=== PATIENT | female | born 1995 | race African-American/Black ===

== ENCOUNTER 2018-01-11 19:12 | Emergency (ER) | payer MEDICAID ==
[~2018-01-11] VITALS: Ht 170.2 cm; Wt 70.3 kg
[~2018-01-11 19:12] MED LIST: CEPHALEXIN500 MG ORAL; IBUPROFEN600 MG ORAL; NITROFURANTOIN100 M2 ORAL; NKM; PRENATAL COMPL1 EAC1 PO; ZOFRAN ODT4 MG ORAL; ZOFRAN4 MG ORAL
[2018-01-11 19:25] VITALS: BP 130/80
[2018-01-11] MEDS ORDERED: Phenazopyridine 200mg tab ORAL ONE (19:30)
[2018-01-11 19:59] LABS: APPEARANCE,URINE CLEAR; BILIRUBIN, URINE NEGATIVE (NEGATIVE); COLOR,URINE PALE YELLOW; GLUCOSE, URINE (UA) NEGATIVE (NEGATIVE); KETONES,URINE NEGATIVE (NEGATIVE); LEUKOCYTE ESTERASE ,URINE NEGATIVE (NEGATIVE); NITRITE,URINE NEGATIVE (NEGATIVE); PH,URINE 6.5 (4.5-8.0); PROTEIN,URINE NEGATIVE (NEGATIVE); UROBILINOGEN,URINE NORMAL MG/DL (0.0-1.0)
--- NOTE | 2018-01-11 20:07 | Emergency Room Report ---
History of Present Illness General Chief Complaint: Back Pain-No Injury Source: Patient Present Illness HPI 22-year-old female presents to the emergency department complaining of dysuria, urinary frequency and urgency in addition to low back pain and dull constant headache that she rates as 5/10 in severity x3 days. She denies fevers, chills , nausea, vomiting constipation or diarrhea. Patient reports history of UTIs in the past with similar presentations. Patient denies history of kidney stone she denies hematuria or vaginal discharge. She denies . Patient denies abdominal tenderness or abdominal pain.Denies CP, Palpitations, LOC, AMS , dizziness, Changes in Vision, Sensation, paresthesias, or a sudden severe headache. Allergies: Coded Allergies: No Known Allergies (Unverified , 09/25/13) Patient History Past Medical History: see triage record Past Surgical History: none Pertinent Family History: none Last Menstrual Period: Now: No Reviewed Nursing Documentation: PMH: Agreed, PSxH: Agreed Nursing Documentation-PMH Past Medical History: No Stated History Review of Systems All Other Systems: negative except mentioned in HPI Physical Exam Vital Signs Date Time Temp Pulse Resp B/P (MAP) Pulse Ox O2 Delivery O2 Flow Rate FiO2 01/11/18 19:20 98.4 61 18 130/80 98 Room Air 98.4 Sp02 EP Interpretation: reviewed, normal General Appearance: no apparent distress, alert, GCS 15, non-toxic Head: normocephalic, atraumatic Eyes: bilateral eye normal inspection ENT: hearing grossly normal, normal voice Neck: full range of motion Respiratory: lungs clear, normal breath sounds, speaking full sentences Cardiovascular #1: regular rate, rhythm Gastrointestinal: normal bowel sounds, non tender, soft Rectal: deferred Genitourinary: normal inspection, no CVA tenderness Musculoskeletal: back normal, gait/station normal, normal range of motion, non- tender Neurologic: alert, oriented x3, responsive, motor strength/tone normal, sensory intact, normal gait, speech normal, grossly normal Psychiatric: judgement/insight normal Skin: normal color, no rash, warm/dry, well hydrated Medical Decision Making PA Attestation Dr. preston is my supervising Physician whom patient management has been discussed with. Diagnostic Impression: Primary Impression: Urinary tract infection Qualified Codes: N30.00 - Acute cystitis without hematuria ER Course 22-year-old female presents to the emergency department complaining of dysuria, urinary frequency and urgency in addition to low back pain and dull constant headache that she rates as 5/10 in severity x3 days. She denies fevers, chills , nausea, vomiting constipation or diarrhea. Patient reports history of UTIs in the past with similar presentations. Patient denies history of kidney stone she denies hematuria or vaginal discharge. She denies . Patient denies abdominal tenderness or abdominal pain.Denies CP, Palpitations, LOC, AMS , dizziness, Changes in Vision, Sensation, paresthesias, or a sudden severe headache. Ddx include but are not limited to : urinary stone, UTI, pyelonephritis, , acute appendicitis, STI just to name a few. Orders: - UA: presence of many bacteria with few squamous cells. -Urine HCG: negative INTERVENTIONS: -Pyridium PO d/w pt that oral antibiotics and Pyridium will be the treatment. Patient states that she frequently will have yeast infections after antibiotics. I discussed with the patient I will prescribe her some Diflucan to be taken after she completes her course of Macrobid. - DISCHARGE: At this time pt. is stable for d/c to home. Will provide printed patient care instructions, and any necessary prescriptions. Care plan and follow up instructions have been discussed with the patient prior to discharge. Labs Test 01/11/18 19:25 Urine Color Pale yellow Urine Appearance Clear Urine pH 6.5 (4.5-8.0) Urine Specific [place] 1.010 (1.005-1.035) Urine Protein Negative (NEGATIVE) Urine Glucose (UA) Negative (NEGATIVE) Urine Ketones Negative (NEGATIVE) Urine Occult Blood 5+ (NEGATIVE) Urine Nitrite Negative (NEGATIVE) Urine Bilirubin Negative (NEGATIVE) Urine Urobilinogen Normal MG/DL (0.0-1.0) Urine Leukocyte Esterase Negative (NEGATIVE) Urine RBC 0-2 /HPF (0 - 2) Urine WBC 0-2 /HPF (0 - 2) Urine Squamous Epithelial Cells Moderate /LPF (NONE/OCC) Urine Bacteria Many /HPF (NONE) Urine HCG, Qualitative Negative Last Vital Signs Date Time Temp Pulse Resp B/P (MAP) Pulse Ox O2 Delivery O2 Flow Rate FiO2 01/11/18 19:25 98.4 61 18 130/80 98 Room Air 98.4 Disposition: HOME, SELF-CARE Condition: Stable Scripts Fluconazole (FLUCONAZOLE) 100 Mg Tablet 100 MG ORAL DAILY for 3 Days, #3 TAB 0 Refills Prov: Vane Freeman 01/11/18 Phenazopyridine Hcl* (PYRIDIUM*) 200 Mg Tablet 200 MG ORAL THREE TIMES A DAY for 3 Days, #9 TAB 0 Refills Prov: Vane Freeman 01/11/18 Nitrofurantoin Monohyd/M-Cryst* (MACROBID 100 MG*) 100 Mg Capsule 100 MG ORAL EVERY 12 HOURS for 5 Days, #10 CAP Prov: Vane Freeman 01/11/18 Patient Instructions: Urinary Tract Infection Additional Instructions: Take medications as directed. Pyridium will cause your urine to change color (Red/[place]), this is a normal side effect of the medication. Follow up with a Primary Care Provider in 3-5 days, even if your symptoms have resolved. --Please review list of primary care clinics, if you do not already have a primary care provider Return sooner to ED if new symptoms occur, or current symptoms become worse. - Please note that this Emergency Department Report was dictated using Once Innovationsprotozoology teacher technology software, occasionally this can lead to erroneous entry secondary to interpretation by the dictation equipment. Vane Freeman Jan 11, 2018 20:07
[2018-01-11] MEDS ORDERED: NITROFURANTOIN100 M2 ORAL (20:16)
[2018-01-11] MEDS ORDERED: FLUCONAZOLE100 MG ORAL (20:16)
[2018-01-11] MEDS ORDERED: PHENAZOPYRIDIN200 MG ORAL (20:16)
[2018-01-11 20:25] VITALS: BP 130/80
== END 2018-01-11 20:25 | disposition home or self-care (01) ==
LOC: EMR 19:30
DX: N39.0 Urinary tract infection, site not specified (principal)
CPT/HCPCS: 81003; 81025; 87086; 87181; 99284

== ENCOUNTER 2018-07-16 15:31 | Emergency (ER) | payer MEDICAID ==
[~2018-07-16] VITALS: Ht 170.2 cm; Wt 77.1 kg
[~2018-07-16 15:31] MED LIST changes: +FLUCONAZOLE100 MG ORAL; +PHENAZOPYRIDIN200 MG ORAL
[2018-07-16 15:40] VITALS: BP 131/64
[2018-07-16] MEDS ORDERED: Phenazopyridine 200mg tab ORAL ONE (15:45)
[2018-07-16 16:00] LABS: APPEARANCE,URINE CLOUDY; BILIRUBIN, URINE NEGATIVE (NEGATIVE); COLOR,URINE PALE YELLOW; GLUCOSE, URINE (UA) NEGATIVE (NEGATIVE); KETONES,URINE 4+ (NEGATIVE); LEUKOCYTE ESTERASE ,URINE 3+ (NEGATIVE); NITRITE,URINE POSITIVE (NEGATIVE); PH,URINE 5 (4.5-8.0); PROTEIN,URINE 2+ (NEGATIVE); UROBILINOGEN,URINE NORMAL MG/DL (0.0-1.0)
[2018-07-16] MEDS ORDERED: cefTRIAXone 1 GM in NS 55 ML IVPB ONE (16:00)
[2018-07-16] MEDS ORDERED: Morphine Sulfate 4mg/ml Inj (IV USE ONLY) IVP ONE ×2 (16:00→17:30)
--- NOTE | 2018-07-16 16:20 | Emergency Room Report ---
History of Present Illness General Chief Complaint: Female Urogenital Problems Source: Patient Present Illness HPI 22 YO Female presents to the ED c/o dysuria, hematuria and bilateral 10/10 in severity flank pain x 3 days. pt. reports fevers and chills x 2 days. she denies vomiting but reports some nausea. Patient denies constipation, diarrhea , swollen tender lymph nodes, joint pain, external vaginal lesions or vaginal discharge. Patient denies . Patient denies history of kidney stones. Denies rash. Allergies: Coded Allergies: No Known Allergies (Unverified , 09/25/13) Patient History Past Medical History: see triage record Past Surgical History: none Pertinent Family History: none Now: No Reviewed Nursing Documentation: PMH: Agreed; PSxH: Agreed Nursing Documentation-PMH Past Medical History: No Stated History Review of Systems All Other Systems: negative except mentioned in HPI Physical Exam Vital Signs Date Time Temp Pulse Resp B/P (MAP) Pulse Ox O2 Delivery O2 Flow Rate FiO2 07/16/18 15:40 102.9 109 18 131/64 96 Room Air 102.9 Sp02 EP Interpretation: reviewed, normal General Appearance: alert, GCS 15, non-toxic, moderate distress Head: normocephalic, atraumatic Eyes: bilateral eye normal inspection, bilateral eye PERRL ENT: hearing grossly normal, normal voice Neck: full range of motion Respiratory: lungs clear, normal breath sounds, speaking full sentences Cardiovascular #1: regular rate, rhythm Gastrointestinal: normal bowel sounds, non tender, soft Rectal: deferred Genitourinary: normal inspection, adnexa normal, CVA tenderness (R), CVA tenderness (L) Musculoskeletal: back normal, gait/station normal, normal range of motion, non- tender Neurologic: alert, oriented x3, responsive, motor strength/tone normal, sensory intact, speech normal, grossly normal Psychiatric: judgement/insight normal Skin: normal color, no rash, warm/dry, well hydrated Medical Decision Making PA Attestation Dr. preston is my supervising Physician whom patient management has been discussed with. Diagnostic Impression: Primary Impression: Pyelonephritis ER Course 22 YO Female presents to the ED c/o dysuria, hematuria and bilateral 10/10 in severity flank pain x 3 days. pt. reports fevers and chills x 2 days. she denies vomiting but reports some nausea. Patient denies constipation, diarrhea , swollen tender lymph nodes, joint pain, external vaginal lesions or vaginal discharge. Patient denies . Patient denies history of kidney stones. Denies rash. Ddx considered but are not limited to UTi , Pyelo, STI, Stone, Cystitis Vital signs: are WNL, pt. is afebrile H&PE are most consistent with pyelonephritis, clinically with fever, CVA tenderness and urinary symptoms, will do lab work and order IV fluids and ABx. ORDERS: - UA labs are attached - Positive for infection, nitrite positive as well. - Urine Hcg: Negative -CBC: leukocytosis at 17.7 -CMP: unremarkable good renal function. normal electrolytes -Lactic Acid: WNL -Blood Cultures x 2: Pending. ED INTERVENTIONS: -1 Liter NS -4mg Morphine IV -4mg Zofran IV -1g Rocephin IV Pt. VS normalized Pt pain under control I feel this pt. is stable and can be safely discharged home to continue outpatient oral antibiotics. D/w pt. ED return precautions and to return immediately to the nearest ED if she experiences worsening or new symptoms. DISCHARGE: At this time pt. is stable for d/c to home. Will provide printed patient care instructions, and any necessary prescriptions. Care plan and follow up instructions have been discussed with the patient prior to discharge. Labs Test 07/16/18 15:46 07/16/18 16:10 Urine Color Pale yellow Urine Appearance Cloudy Urine pH 5 (4.5-8.0) Urine Specific [place] 1.015 (1.005-1.035) Urine Protein 2+ (NEGATIVE) Urine Glucose (UA) Negative (NEGATIVE) Urine Ketones 4+ (NEGATIVE) Urine Occult Blood 5+ (NEGATIVE) Urine Nitrite Positive (NEGATIVE) Urine Bilirubin Negative (NEGATIVE) Urine Urobilinogen Normal MG/DL (0.0-1.0) Urine Leukocyte Esterase 3+ (NEGATIVE) Urine RBC 5-10 /HPF (0 - 2) Urine WBC Tntc /HPF (0 - 2) Urine Squamous Epithelial Cells Many /LPF (NONE/OCC) Urine Bacteria Many /HPF (NONE) Urine HCG, Qualitative Negative (NEGATIVE) White Blood Count 17.7 K/UL (4.8-10.8) Red Blood Count 4.89 M/UL (4.20-5.40) Hemoglobin 13.7 G/DL (12.0-16.0) Hematocrit 42.1 % (37.0-47.0) Mean Corpuscular Volume 86 FL (80-99) Mean Corpuscular Hemoglobin 28.1 PG (27.0-31.0) Mean Corpuscular Hemoglobin Concent 32.6 G/DL (32.0-36.0) Red Cell Distribution Width 11.4 % (11.6-14.8) Platelet Count 247 K/UL (150-450) Mean Platelet Volume 7.6 FL (6.5-10.1) Neutrophils (%) (Auto) 81.0 % (45.0-75.0) Lymphocytes (%) (Auto) 7.8 % (20.0-45.0) Monocytes (%) (Auto) 10.5 % (1.0-10.0) Eosinophils (%) (Auto) 0.2 % (0.0-3.0) Basophils (%) (Auto) 0.6 % (0.0-2.0) Sodium Level 140 MMOL/L (136-145) Potassium Level 3.8 MMOL/L (3.5-5.1) Chloride Level 102 MMOL/L (98-107) Carbon Dioxide Level 24 MMOL/L (21-32) Anion Gap 14 mmol/L (5-15) Blood Urea Nitrogen 7 mg/dL (7-18) Creatinine 0.9 MG/DL (0.55-1.30) Estimat Glomerular Filtration Rate > 60 mL/min (>60) Glucose Level 88 MG/DL (74-106) Lactic Acid Level 1.30 mmol/L (0.4-2.0) Calcium Level 9.6 MG/DL (8.5-10.1) Total Bilirubin 1.1 MG/DL (0.2-1.0) Direct Bilirubin 0.3 MG/DL (0.0-0.3) Aspartate Amino Transf (AST/SGOT) 12 U/L (15-37) Alanine Aminotransferase (ALT/SGPT) 19 U/L (12-78) Alkaline Phosphatase 93 U/L (46-116) Total Protein 8.3 G/DL (6.4-8.2) Albumin 3.7 G/DL (3.4-5.0) Globulin 4.6 g/dL Albumin/Globulin Ratio 0.8 (1.0-2.7) Last Vital Signs Date Time Temp Pulse Resp B/P (MAP) Pulse Ox O2 Delivery O2 Flow Rate FiO2 07/16/18 15:40 102.9 109 18 131/64 96 Room Air 102.9 Disposition: HOME, SELF-CARE Condition: Stable Scripts Phenazopyridine Hcl* (PYRIDIUM*) 200 Mg Tablet 200 MG ORAL THREE TIMES A DAY for 3 Days, #9 TAB 0 Refills Prov: Vane Freeman 07/16/18 Hydrocodone Bit/Acetaminophen 5-325* (NORCO 5-325*) 1 Each Tablet 1 TAB ORAL Q6H PRN for For Pain, #10 TAB 0 Refills Prov: Vane Freeman 07/16/18 Ciprofloxacin* (CIPRO*) 500 Mg Tablet 500 MG PO BID for 7 Days, #14 TAB Prov: Vane Freeman 07/16/18 Referrals: [facility]ERR (PCP) Departure Forms: Return to Work Return to Work Date: Jul 20, 2018 Work Restrictions: None Return to Full Activity: Jul 20, 2018 Patient Instructions: Pyelonephritis, Adult, [id number] Additional Instructions: Take medications as directed. Follow up with a Primary Care Provider in 3-5 days, even if your symptoms have resolved. --Please review list of primary care clinics, if you do not already have a primary care provider Return sooner to ED if new symptoms occur, or current symptoms become worse. Do not drink alcohol, drive, or operate heavy machinery while taking [place] as this may cause drowsiness. - Please note that this Emergency Department Report was dictated using Innovate2certified wellness program coordinator technology software, occasionally this can lead to erroneous entry secondary to interpretation by the dictation equipment. Vane Freeman Jul 16, 2018 16:20
[2018-07-16 16:25] LABS: BASOPHILS % (AUTO) 0.6 % (0.0-2.0); EOSINOPHILS % (AUTO) 0.2 % (0.0-3.0); HEMATOCRIT 42.1 % (37.0-47.0); HEMOGLOBIN 13.7 G/DL (12.0-16.0); LYMPHOCYTES % (AUTO) 7.8 % (20.0-45.0); MEAN CORPUSCULAR VOLUME 86 FL (80-99); MONOCYTES % (AUTO) 10.5 % (1.0-10.0); PLATELET COUNT 247 K/UL (150-450); RED BLOOD COUNT 4.89 M/UL (4.20-5.40); RED CELL DISTRIBUTION WIDTH 11.4 % (11.6-14.8); WHITE BLOOD COUNT 17.7 K/UL (4.8-10.8)
[2018-07-16] MEDS ORDERED: Ketorolac 30mg Inj IV ONE (16:30)
[2018-07-16 16:37] LABS: ANION GAP 14 mmol/L (5-15); BLOOD UREA NITROGEN 7 mg/dL (7-18); CALCIUM 9.6 MG/DL (8.5-10.1); CARBON DIOXIDE 24 MMOL/L (21-32); CHLORIDE 102 MMOL/L (98-107); CREATININE 0.9 MG/DL (0.55-1.30); POTASSIUM 3.8 MMOL/L (3.5-5.1); SODIUM 140 MMOL/L (136-145)
[2018-07-16 16:52] LABS: ALANINE AMINOTRANSFERASE 19 U/L (12-78); ALBUMIN 3.7 G/DL (3.4-5.0); ALBUMIN/GLOBULIN RATIO 0.8 (1.0-2.7); ALKALINE PHOSPHATASE 93 U/L (46-116); ASPARTATE AMINO TRANSFERASE 12 U/L (15-37); BILIRUBIN,TOTAL 1.1 MG/DL (0.2-1.0)
[2018-07-16 16:55] LABS: BILIRUBIN,DIRECT 0.3 MG/DL (0.0-0.3)
[2018-07-16] MEDS ORDERED: CIPRO500 MG PO (17:17)
[2018-07-16] MEDS ORDERED: NORCO 5-325 TA1 EACH ORAL (17:17)
[2018-07-16] MEDS ORDERED: PHENAZOPYRIDIN200 MG ORAL (17:17)
[2018-07-16 17:51] VITALS: BP 115/60
== END 2018-07-16 17:52 | disposition home or self-care (01) ==
LOC: EMR 15:54
DX: N12 Tubulo-interstitial nephritis, not specified as acute or chronic (principal)
CPT/HCPCS: 36415; 80053; 81003; 81025; 82248; 83605; 85025; 87040; 87086; 87181; 96365; 96375; 96376; 99285; J0696; J2270; J2405

== ENCOUNTER 2018-12-05 15:26 | Inpatient (IN) | payer MEDICAID ==
[~2018-12-05] VITALS: Ht 170.2 cm; Wt 80.3 kg
[~2018-12-05 15:26] MED LIST changes: +CIPRO500 MG PO; +NORCO 5-325 TA1 EACH ORAL
[2018-12-05] MEDS ORDERED: NKM (15:32)
[2018-12-05 15:35] VITALS: BP 127/58
--- NOTE | 2018-12-05 15:57 | Emergency Room Report ---
History of Present Illness General Chief Complaint: Abdominal Pain Source: Patient (Corey Pate) Present Illness HPI 23-year-old female patient presents the ER complaining of abdominal cramping for the past 2 days. She reports that she is 6 weeks , has seen her primary care provider however has not seen MANAGER PRIVATE yet. Denies vaginal bleeding. Denies syncope. Denies dysuria, hematuria, vaginal discharge. Reports no syncope or vomiting. Denies chest pain, shortness of breath. Reports right-sided flank pain. Reports history of kidney infection, denies history of kidney stones. Denies diarrhea. Denies calf pain. Reports pain with sexual activity 2 days ago. Denies vaginal discharge. Reports last menstrual period 6 weeks ago, denies vaginal bleeding since that time. (Corey Pate) Allergies: Coded Allergies: No Known Allergies (Unverified , 12/05/18) Patient History Past Medical History: see triage record Last Menstrual Period: 10/18/18 Now: Yes - 6 WEEKS Reviewed Nursing Documentation: PMH: Agreed; PSxH: Agreed (Corey Pate) Nursing Documentation-PMH Past Medical History: No Stated History (Corey Pate) Review of Systems All Other Systems: negative except mentioned in HPI (Corey Pate) Physical Exam Vital Signs Date Time Temp Pulse Resp B/P (MAP) Pulse Ox O2 Delivery O2 Flow Rate FiO2 12/05/18 15:28 98.2 73 16 127/58 97 Room Air Sp02 EP Interpretation: reviewed, normal General Appearance: well appearing, no apparent distress, alert, GCS 15, non- toxic Head: normocephalic, atraumatic Eyes: bilateral eye normal inspection, bilateral eye PERRL ENT: hearing grossly normal, normal pharynx, no angioedema, normal voice, uvula midline, moist mucus membranes Neck: full range of motion Respiratory: lungs clear, normal breath sounds, no rhonchi, no respiratory distress, no accessory muscle use, no wheezing, speaking full sentences Cardiovascular #1: regular rate, rhythm, no edema Gastrointestinal: non tender, soft, no mass, non-distended, no guarding, no rebound Genitourinary: no CVA tenderness, deferred Musculoskeletal: back normal, digits/nails normal, gait/station normal, normal range of motion, non-tender Neurologic: alert, oriented x3, responsive, motor strength/tone normal, sensory intact Psychiatric: mood/affect normal Skin: no rash (Corey Pate) Medical Decision Making PA Attestation Dr. Gomez is my supervising Physician whom patient management has been discussed with. (Corey Pate) Diagnostic Impression: Primary Impression: Ectopic ER Course Pt presents to ED c/o vaginal bleeding/spotting. DDX considered but are not limited to threatened , incomplete , complete , ectopic, UTI, septic , fibroids, dysfunctional uterine bleeding, ruptured cyst, STI, ovarian torsion, anemia. Negative Rovsing, no fever, low suspicion for appendicitis, does not require CT at this time. VITAL SIGNS are WNL, patient is afebrile Pelvic exam: cervical os opened or closed/ deferred. Ordered CBC, CMP, Type and Screen, UA, UCG, bHCG, IV NS and pelvic US. Tylenol for pain control. ER COURSE: CBC shows mild elevation of WBC without left shift, likely due to pain symptoms CMP unremarkable UA results no signs of infection per the preliminary reading. Urine positive BetaHCG 349, less than normal bHCG for 6 week . Rh antibody negative Blood type O positive Results discussed with patient. Pelvic and Abdominal US shows no IUP, no torsion, pelvic free fluid, no hydronephrosis, no kidney stone Results discussed with patient. Elevated beta hCG without IUP, concern for ectopic, need to rule out ectopic . Patient currently hemodynamically stable, vitals stable. Will admit patient for further monitoring and treatment as needed to rule out ectopic. Discuss patient care with Dr. Gomez, agrees with assessment and treatment plan. - Please note that this Emergency Department Report was dictated using Chorustire installer technology software, occasionally this can lead to erroneous entry secondary to interpretation by the dictation equipment. Labs Test 12/05/18 15:48 White Blood Count 12.4 K/UL (4.8-10.8) Red Blood Count 4.72 M/UL (4.20-5.40) Hemoglobin 14.0 G/DL (12.0-16.0) Hematocrit 40.9 % (37.0-47.0) Mean Corpuscular Volume 87 FL (80-99) Mean Corpuscular Hemoglobin 29.6 PG (27.0-31.0) Mean Corpuscular Hemoglobin Concent 34.2 G/DL (32.0-36.0) Red Cell Distribution Width 11.4 % (11.6-14.8) Platelet Count 262 K/UL (150-450) Mean Platelet Volume 7.5 FL (6.5-10.1) Neutrophils (%) (Auto) 70.3 % (45.0-75.0) Lymphocytes (%) (Auto) 20.0 % (20.0-45.0) Monocytes (%) (Auto) 7.8 % (1.0-10.0) Eosinophils (%) (Auto) 0.8 % (0.0-3.0) Basophils (%) (Auto) 1.2 % (0.0-2.0) Urine Color Pale yellow Urine Appearance Clear Urine pH 7 (4.5-8.0) Urine Specific [place] 1.015 (1.005-1.035) Urine Protein 1+ (NEGATIVE) Urine Glucose (UA) Negative (NEGATIVE) Urine Ketones 1+ (NEGATIVE) Urine Blood Negative (NEGATIVE) Urine Nitrite Negative (NEGATIVE) Urine Bilirubin Negative (NEGATIVE) Urine Urobilinogen Normal MG/DL (0.0-1.0) Urine Leukocyte Esterase 1+ (NEGATIVE) Urine RBC 0-2 /HPF (0 - 2) Urine WBC 2-4 /HPF (0 - 2) Urine Squamous Epithelial Cells Moderate /LPF (NONE/OCC) Urine Bacteria Few /HPF (NONE) Urine HCG, Qualitative Positive (NEGATIVE) Sodium Level 138 MMOL/L (136-145) Potassium Level 4.2 MMOL/L (3.5-5.1) Chloride Level 104 MMOL/L (98-107) Carbon Dioxide Level 26 MMOL/L (21-32) Anion Gap 8 mmol/L (5-15) Blood Urea Nitrogen 8 mg/dL (7-18) Creatinine 0.8 MG/DL (0.55-1.30) Estimat Glomerular Filtration Rate > 60 mL/min (>60) Glucose Level 90 MG/DL (74-106) Calcium Level 9.3 MG/DL (8.5-10.1) Total Bilirubin 0.9 MG/DL (0.2-1.0) Aspartate Amino Transf (AST/SGOT) 13 U/L (15-37) Alanine Aminotransferase (ALT/SGPT) 19 U/L (12-78) Alkaline Phosphatase 83 U/L (46-116) Total Protein 7.7 G/DL (6.4-8.2) Albumin 4.0 G/DL (3.4-5.0) Globulin 3.7 g/dL Albumin/Globulin Ratio 1.1 (1.0-2.7) Lipase 208 U/L (73-393) Human Chorionic Gonadotropin, Quant 349 mIU/mL (1-6) (Corey Pate P.Juvenal.) ER Course Patient was seen by PA. Patient appears to be comfortable however pelvic ultrasound showed no evidence of intrauterine with low quantitative beta-hCG and moderate to large amount of free fluid. Dr. Rosas was contacted for OBgyn consult. Dr. Thanh Temple was contacted for inpatient observation. Labs Test 12/05/18 15:48 White Blood Count 12.4 K/UL (4.8-10.8) Red Blood Count 4.72 M/UL (4.20-5.40) Hemoglobin 14.0 G/DL (12.0-16.0) Hematocrit 40.9 % (37.0-47.0) Mean Corpuscular Volume 87 FL (80-99) Mean Corpuscular Hemoglobin 29.6 PG (27.0-31.0) Mean Corpuscular Hemoglobin Concent 34.2 G/DL (32.0-36.0) Red Cell Distribution Width 11.4 % (11.6-14.8) Platelet Count 262 K/UL (150-450) Mean Platelet Volume 7.5 FL (6.5-10.1) Neutrophils (%) (Auto) 70.3 % (45.0-75.0) Lymphocytes (%) (Auto) 20.0 % (20.0-45.0) Monocytes (%) (Auto) 7.8 % (1.0-10.0) Eosinophils (%) (Auto) 0.8 % (0.0-3.0) Basophils (%) (Auto) 1.2 % (0.0-2.0) Urine Color Pale yellow Urine Appearance Clear Urine pH 7 (4.5-8.0) Urine Specific [place] 1.015 (1.005-1.035) Urine Protein 1+ (NEGATIVE) Urine Glucose (UA) Negative (NEGATIVE) Urine Ketones 1+ (NEGATIVE) Urine Blood Negative (NEGATIVE) Urine Nitrite Negative (NEGATIVE) Urine Bilirubin Negative (NEGATIVE) Urine Urobilinogen Normal MG/DL (0.0-1.0) Urine Leukocyte Esterase 1+ (NEGATIVE) Urine RBC 0-2 /HPF (0 - 2) Urine WBC 2-4 /HPF (0 - 2) Urine Squamous Epithelial Cells Moderate /LPF (NONE/OCC) Urine Bacteria Few /HPF (NONE) Urine HCG, Qualitative Positive (NEGATIVE) Sodium Level 138 MMOL/L (136-145) Potassium Level 4.2 MMOL/L (3.5-5.1) Chloride Level 104 MMOL/L (98-107) Carbon Dioxide Level 26 MMOL/L (21-32) Anion Gap 8 mmol/L (5-15) Blood Urea Nitrogen 8 mg/dL (7-18) Creatinine 0.8 MG/DL (0.55-1.30) Estimat Glomerular Filtration Rate > 60 mL/min (>60) Glucose Level 90 MG/DL (74-106) Calcium Level 9.3 MG/DL (8.5-10.1) Total Bilirubin 0.9 MG/DL (0.2-1.0) Aspartate Amino Transf (AST/SGOT) 13 U/L (15-37) Alanine Aminotransferase (ALT/SGPT) 19 U/L (12-78) Alkaline Phosphatase 83 U/L (46-116) Total Protein 7.7 G/DL (6.4-8.2) Albumin 4.0 G/DL (3.4-5.0) Globulin 3.7 g/dL Albumin/Globulin Ratio 1.1 (1.0-2.7) Lipase 208 U/L (73-393) Human Chorionic Gonadotropin, Quant 349 mIU/mL (1-6) (Titi Gomez MD) CT/MRI/US Diagnostic Results CT/MRI/US Diagnostic Results : Imaging Test Ordered: Pelvic and Abdominal US Impression Per US processing technician: Pelvic free fluid, no IUP, no torsion No hydronephrosis, no kidney stone (Corey Pate P.A.) Last Vital Signs Date Time Temp Pulse Resp B/P (MAP) Pulse Ox O2 Delivery O2 Flow Rate FiO2 12/05/18 15:35 73 16 Room Air 12/05/18 15:35 98.2 127/58 97 (Corey Pate) Status: improved (Titi Gomez MD) Disposition: ADMITTED INPATIENT Condition: Serious Corey Pate Dec 05, 2018 15:57 Titi Gomez MD Dec 05, 2018 21:24
[2018-12-05 16:19] LABS: APPEARANCE,URINE CLEAR; BASOPHILS % (AUTO) 1.2 % (0.0-2.0); BILIRUBIN, URINE NEGATIVE (NEGATIVE); COLOR,URINE PALE YELLOW; EOSINOPHILS % (AUTO) 0.8 % (0.0-3.0); GLUCOSE, URINE (UA) NEGATIVE (NEGATIVE); HEMATOCRIT 40.9 % (37.0-47.0); KETONES,URINE 1+ (NEGATIVE); LEUKOCYTE ESTERASE ,URINE 1+ (NEGATIVE); MEAN CORPUSCULAR VOLUME 87 FL (80-99); MONOCYTES % (AUTO) 7.8 % (1.0-10.0); NEUTROPHILS % (AUTO) 70.3 % (45.0-75.0); NITRITE,URINE NEGATIVE (NEGATIVE); PH,URINE 7 (4.5-8.0); PLATELET COUNT 262 K/UL (150-450); PROTEIN,URINE 1+ (NEGATIVE); RED BLOOD COUNT 4.72 M/UL (4.20-5.40); RED CELL DISTRIBUTION WIDTH 11.4 % (11.6-14.8); UROBILINOGEN,URINE NORMAL MG/DL (0.0-1.0); WHITE BLOOD COUNT 12.4 K/UL (4.8-10.8)
[2018-12-05 16:33] LABS: ANION GAP 8 mmol/L (5-15); BLOOD UREA NITROGEN 8 mg/dL (7-18); CALCIUM 9.3 MG/DL (8.5-10.1); CARBON DIOXIDE 26 MMOL/L (21-32); CHLORIDE 104 MMOL/L (98-107); CREATININE 0.8 MG/DL (0.55-1.30); POTASSIUM 4.2 MMOL/L (3.5-5.1); SODIUM 138 MMOL/L (136-145)
[2018-12-05 16:37] LABS: ALANINE AMINOTRANSFERASE 19 U/L (12-78); ALBUMIN/GLOBULIN RATIO 1.1 (1.0-2.7); ALKALINE PHOSPHATASE 83 U/L (46-116); ASPARTATE AMINO TRANSFERASE 13 U/L (15-37); BILIRUBIN,TOTAL 0.9 MG/DL (0.2-1.0)
--- NOTE | 2018-12-05 16:50 | NUR ---
ED Nurse Note: pt went down for US, will give medications when pt comes back.
[2018-12-05 18:29] VITALS: BP 134/67
--- NOTE | 2018-12-05 19:15 | NUR ---
HAND-OFF: Report given to NIOCLE Reeves. No s/s of distress.
[2018-12-06] VITALS (8 sets, daily range): BP systolic 92–140; BP diastolic 46–63
--- NOTE | 2018-12-06 00:07 | NUR ---
ED Nurse Note: pt was admitted in the hospital, pt sent to ms 321, report given to anne win
--- NOTE | 2018-12-06 00:30 | History and Physical Report ---
DATE OF ADMISSION: 12/05/2018 HISTORY OF PRESENT ILLNESS: This is a 23-year-old female, who came to the emergency room for having a recurrent nausea, vomiting, and was found has and has also viral syndrome and palpitation, urinary tract infection, pyelonephritis, and ectopic . The patient currently is unable to eat for the last 2 days. MEDICATIONS: She is taking ibuprofen, nitrofurantoin, Zofran, Pyridium, and ciprofloxacin. ALLERGIES: NKA. FAMILY HISTORY: Not contributory. PHYSICAL EXAMINATION: GENERAL: This is a young female, who currently still looks dehydrated and complaining of generalized weakness. VITAL SIGNS: Blood pressure is 134/67, pulse 75, respirations 16, and temperature 98.2. HEENT: NAD. CHEST: Bilaterally clear. CARDIOVASCULAR: Regular rhythm. No gallop. No murmur. ABDOMEN: Soft. Mild tenderness. EXTREMITIES: CCE. NEUROLOGICAL: No focal deficit. LABORATORY DATA: White counts are 12.4, hemoglobin 14, hematocrit 41, and platelets are 262,000. Chemistry panel; sodium 138, potassium 4.2, BUN 8, creatinine 0.8, glucose 314, . Her SGT is 349. Her urine test is showing 1+ leukocyte esterase and positive and 1+ protein. ASSESSMENT: 1. Urinary tract infection. 2. Pyelonephritis. 3. . PLAN: 1. We will admit on medical floor. 2. Start IV fluid and IV antibiotics. 3. Tylenol p.r.n. 4. Continue supportive treatment. 5. We will also add Rocephin 1 gram q.24 hours. 6. Consider LABOR GANG SUPERVISOR consult and ID consult. Thanh Temple M.D. DR: IGNACIO JOB#: [id number] CC:
[2018-12-06] MEDS: NS w/KCl 20mEq 1,000 ML IV SCH ×3 (02:30→17:45)
--- NOTE | 2018-12-06 03:07 | NUR ---
NURSE NOTES: Patient admitted to room 321. VSS. No SOB noted. 3/10 Abdominal pain noted. No N&V at this time. Belongings list documented and signed. Skin is intact. Able to ambulate to the restroom. MD with orders noted and carried out. Needs attended. Due meds given. Call light within reach. In stable condition.
[2018-12-06] MEDS: cefTRIAXone 1 GM in D5W 55 ML IVPB SCH (05:49)
--- NOTE | 2018-12-06 07:30 | NUR ---
NURSE NOTES: Patient lying in bed awake. Complain of mild pain and will continue to monitor. Skin intact and dry. IV dressing intact and dry. No bleeding or swelling on IV site. IV fluid on going as ordered. Bed lowest position. Call light within reach. Will continue to monitor.
--- NOTE | 2018-12-06 09:27 | NUR ---
CASE MANAGEMENT: REVIEW BIBA FROM HOME CC: ABD PAIN SI: R/O ECTOPIC T 98.2 HR 73 RR 16 BP 127/58 SAT 97% ROOM AIR UA: HCG + IS: NS IVF X1 INTERQUAL CRITERIA MET: PATIENT ADMITTED TO MED/SURG UNIT 12/05/2018 DCP: PATIENT IS FROM HOME CASE MANAGEMENT: REVIEW SI: R/O ECTOPIC T 98.0 HR 68 RR 18 BP 140/59 SAT 97% ROOM AIR IS: CEFTRIAXONE IV Q24HR NS IVF @100ML MED/SURG STATUS DCP: PATIENT IS FROM HOME
--- NOTE | 2018-12-06 09:43 | Diagnostic Imaging Report ---
Indication: Positive test. Pelvic pain Technique: Grayscale and duplex Doppler imaging of the pelvis performed utilizing a transabdominal scan and endovaginal scan. Comparison: None Findings: No IUP identified. There is thickening of the endometrium. There is a free fluid present within the cul-de-sac. Both ovaries are demonstrated and show dopplerable blood flow. Uterus measures approximately 8 x 5 x 6 cm. Endometrium is a about 17 to 18 mm in thickness. Right ovary 4.3 x 3 x 3.9 cm. Left ovary 3.6 x 2.1 x 1.8 cm. IMPRESSION: No IUP identified. Differential considerations include early intrauterine versus early ectopic versus spontaneous . Suggest follow-up and obtaining serial quantitative beta-hCG. Current beta-hCG is noted at the only 349.
[2018-12-06 10:12] LABS: BASOPHILS % (AUTO) 0.6 % (0.0-2.0); EOSINOPHILS % (AUTO) 1.1 % (0.0-3.0); HEMATOCRIT 36.7 % (37.0-47.0); HEMOGLOBIN 12.3 G/DL (12.0-16.0); LYMPHOCYTES % (AUTO) 26.8 % (20.0-45.0); MEAN CORPUSCULAR VOLUME 86 FL (80-99); NEUTROPHILS % (AUTO) 63.5 % (45.0-75.0); PLATELET COUNT 217 K/UL (150-450); RED BLOOD COUNT 4.25 M/UL (4.20-5.40); RED CELL DISTRIBUTION WIDTH 11.6 % (11.6-14.8); WHITE BLOOD COUNT 9.8 K/UL (4.8-10.8)
--- NOTE | 2018-12-06 11:10 | NUR ---
NURSE NOTES: Called and left massage to regarding morning Lab result. Waiting for call back.
--- NOTE | 2018-12-06 11:40 | Diagnostic Imaging Report ---
Indication:Abdominal pain Technique: Grayscale and duplex Doppler imaging of the abdomen performed. Comparison: None Findings: The liver is unremarkable. The gallbladder is unremarkable. The demonstrated part of the pancreas, aorta and IVC show no abnormalities. There is a 1.2 cm right renal cyst. There is a questionable nonobstructive stone in the left kidney. CBD is 2 mm. The spleen is normal in size. There is no biliary ductal dilatation identified. Doppler evaluation of the main portal vein shows patency. There is no ascites. No hydronephrosis seen. Impression: No acute findings. Right renal cyst Questionable nonobstructive stone left kidney.
--- NOTE | 2018-12-06 12:45 | NUR ---
NURSE NOTES: Seen and evaluated by with new order - 1. Patient cleared to discharge Gynecology standpoint and patient will follow up with her primary OB doctor. Order read back and carried out.
--- NOTE | 2018-12-06 14:15 | NUR ---
NURSE NOTES: Called and left massage at office regarding discharge and waiting for call back.
--- NOTE | 2018-12-06 15:28 | NUR ---
NURSE NOTES: Spoke to office. will come and see the patient today. Patient and family member notified.
--- NOTE | 2018-12-06 16:22 | NUR ---
INSURANCE ALL CLINICALS HAVE BEEN FAXED TO: IPA: [facility] NCM: CHRISTI T: [phone] EXT: [id number] F: [phone]
--- NOTE | 2018-12-06 16:40 | NUR ---
NURSE NOTES: Seen and evaluated by with new order - 1. Discharge patient today, 2. Continue home medications upon discharge. Order noted and carried out.
--- NOTE | 2018-12-06 17:30 | NUR ---
NURSE NOTES: Patient still has pressure on her lower back and felt not safe to go home today. Patient requested to discharge tomorrow. Spoke to regarding discharge with new order - 1. Ok to discharge tomorrow. Order noted and carried out.
--- NOTE | 2018-12-06 19:20 | NUR ---
HAND-OFF: Report given to Ayo RIVERA. Patient in stable condition.
--- NOTE | 2018-12-06 19:21 | NUR ---
NURSE NOTES: Report taken from NICOLE Gong. Patient is alert and oriented in bed. No signs of distress, on room air. patient is having some minor flank pain, which is why she would like to stay until tomorrow, but MD has placed discharge orders. Patient boyfriend at bedside. Bed in lowest position, call light within reach.
--- NOTE | 2018-12-06 20:15 | Consultation ---
DATE OF CONSULTATION: 12/06/2018 CONSULTING PHYSICIAN: Nitin Rosas M.D. HISTORY OF PRESENT ILLNESS: This is a 23-year-old female, who is 2, para 1, with questionable last menstrual period approximately 5-6 weeks ago, who presented complaining of lower abdominal cramps. The patient denied any vaginal bleeding. The patient denied any shortness of breath, chest pain, dizziness, or lightheadedness. The patient had a workup done in the emergency room and an ultrasound which revealed normal-sized uterus with no intrauterine , both ovaries within normal limits with no adnexal masses noted with some free fluid. The patient's quantitative beta-hCG was 340 and initial hemoglobin and hematocrit was within normal limits. PAST MEDICAL HISTORY: Noncontributory. PAST SURGICAL HISTORY: Noncontributory. ALLERGIES: The patient has no known drug allergies. OBSTETRICAL HISTORY: She had a full-term normal spontaneous vaginal delivery. GYNECOLOGICAL HISTORY: Contributory for history of Chlamydia infection during her first . SOCIAL HISTORY: Noncontributory. FAMILY HISTORY: Noncontributory. PHYSICAL EXAMINATION: VITAL SIGNS: On presentation, vital signs noted to be stable. CARDIOVASCULAR: Regular rate and rhythm. LUNGS: Clear to auscultation. ABDOMEN: Soft. PELVIC: The patient declined pelvic examination. EXTREMITIES: No cyanosis, edema, or clubbing. LABORATORY DATA: Repeat hemoglobin and hematocrit was within normal limits. The patient's repeat quantitative beta-HCG is 423. ASSESSMENT AND PLAN: At this time, with history of , questionable early intrauterine versus missed versus ectopic. At this time, the patient is stable. The patient was spoken to at length along with her family member about different scenarios, which can include early intrauterine versus missed versus possibility of an ectopic , however, the patient is stable enough to be discharged. The patient is reliable. 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 Strict precaution was given to the patient about ectopic as well as spontaneous . This patient fully understands. The patient was also made aware of the fact that if she has any issues, she should follow up at a tertiary medical center for further evaluation. I thank you for this consultation. Nitin Rosas M.D. DR: GURJIT JOB#: [id number] CC:
--- NOTE | 2018-12-06 21:00 | Progress Note ---
DATE: 12/06/2018 SUBJECTIVE: This is a young 23-year-old female came to the emergency room for abdominal pain, nausea, vomiting, was found to have urinary tract infection, ectopic . The patient was given Zofran, IV antibiotics. Clinically the patient is feeling better. She has no distress. During hospital course, the patient was given IV antibiotics. HAND TACKER consult was obtained. The patient was symptomatically improved. She is going to go home. Follow up as outpatient. DISCHARGE DIAGNOSES: 1. Urinary tract infection. 2. Ectopic . DIET: She is tolerating a regular diet. ACTIVITY: As tolerated. DISCHARGE MEDICATION: The patient is going to continue Levaquin 500 daily for three days. Followup with PCP as well as HAND TACKER as an outpatient. Thanh Temple M.D. DR: Troy JOB#: [id number] CC:
[2018-12-07] VITALS: BP 115/72
[2018-12-07] MEDS: NS w/KCl 20mEq 1,000 ML IV SCH (03:38)
[2018-12-07 04:00] VITALS: BP 103/50
[2018-12-07] MEDS: cefTRIAXone 1 GM in D5W 55 ML IVPB SCH (06:13)
--- NOTE | 2018-12-07 07:15 | NUR ---
HAND-OFF: Report given to NICOLE Gong.
--- NOTE | 2018-12-07 07:30 | NUR ---
NURSE NOTES: Patient lying in bed awake. No complain of pain or distress at this time. Skin intact and dry. IV dressing intact and dry. IV fluid on going as ordered. Bed lowest position. Call light within reach. Will continue to monitor.
[2018-12-07 08:00] VITALS: BP 110/44
[2018-12-07] MEDS ORDERED: LEVAQUIN500 MG ORAL (08:08)
[2018-12-07 12:00] VITALS: BP 114/56
--- NOTE | 2018-12-07 12:00 | NUR ---
NURSE NOTES: Patient discharged with family member in stable condition. Discharge instruction given to patient and verbalized understanding. Antibiotic prescription given to patient. Belonging given to patient. IV and ID removed. Patient ambulated out with all personal belongings with steady gait.
--- NOTE | 2018-12-07 17:45 | Discharge Summary ---
DATE OF ADMISSION: 12/05/2018 DATE OF DISCHARGE: 12/07/2018 BRIEF HISTORY AND HOSPITAL COURSE: This is a young female who came to the emergency room for abdominal pain, nausea, and vomiting. The patient was found with urinary tract infection and also has ectopic . The patient had KILN PULLER consult as well as IV antibiotics. The patient clinically was doing much better. She is going to go home and follow up as an outpatient. DISCHARGE DIAGNOSES: 1. UTI. We are going to continue Levaquin for three days. 2. Ectopic . Follow up with KILN PULLER as an outpatient. The patient was also recommended to come back to the hospital if there were any other medical issues which came up. Follow up with her PCP and KILN PULLER in few days. Thanh Temple M.D. DR: Artie JOB#: [id number] CC:
== END 2018-12-07 12:00 | disposition home or self-care (01) | DRG 561 ==
LOC: EMR 16:37 → 3E 21:04 → EDBEDREQ 22:27
DX: O08.83 Urinary tract infection following an ectopic and molar pregnancy (principal); O00.90 Unspecified ectopic pregnancy without intrauterine pregnancy
CPT/HCPCS: 36415; 76700; 76801; 80053; 81003; 81025; 83690; 84702; 85025; 86850; 86900; 86901; 99285

== ENCOUNTER 2018-12-25 18:25 | Inpatient (IN) | payer MEDICAID ==
[~2018-12-25] VITALS: Ht 170.2 cm; Wt 78.1 kg
[~2018-12-25 18:25] MED LIST changes: +LEVAQUIN500 MG ORAL
[2018-12-25 19:14] LABS: BASOPHILS % (AUTO) 0.9 % (0.0-2.0); EOSINOPHILS % (AUTO) 0.6 % (0.0-3.0); HEMATOCRIT 41.7 % (37.0-47.0); LYMPHOCYTES % (AUTO) 17.2 % (20.0-45.0); MEAN CORPUSCULAR VOLUME 86 FL (80-99); MONOCYTES % (AUTO) 7.7 % (1.0-10.0); NEUTROPHILS % (AUTO) 73.6 % (45.0-75.0); PLATELET COUNT 274 K/UL (150-450); RED BLOOD COUNT 4.87 M/UL (4.20-5.40); RED CELL DISTRIBUTION WIDTH 10.8 % (11.6-14.8); WHITE BLOOD COUNT 14.3 K/UL (4.8-10.8)
[2018-12-25 19:16] LABS: APPEARANCE,URINE SLIGHTLY CLOUDY; BILIRUBIN, URINE 2+ (NEGATIVE); GLUCOSE, URINE (UA) NEGATIVE (NEGATIVE); KETONES,URINE 3+ (NEGATIVE); LEUKOCYTE ESTERASE ,URINE 2+ (NEGATIVE); NITRITE,URINE NEGATIVE (NEGATIVE); PH,URINE 5 (4.5-8.0); PROTEIN,URINE 1+ (NEGATIVE); UROBILINOGEN,URINE 12 MG/DL (0.0-1.0)
[2018-12-25 19:17] LABS: COLOR,URINE AMBER
[2018-12-25 19:22] LABS: ANION GAP 14 mmol/L (5-15); BLOOD UREA NITROGEN 6 mg/dL (7-18); CARBON DIOXIDE 22 MMOL/L (21-32); CHLORIDE 100 MMOL/L (98-107); CREATININE 0.7 MG/DL (0.55-1.30); POTASSIUM 3.8 MMOL/L (3.5-5.1); SODIUM 136 MMOL/L (136-145)
[2018-12-25 19:33] LABS: ALANINE AMINOTRANSFERASE 55 U/L (12-78); ALBUMIN 4.1 G/DL (3.4-5.0); ALBUMIN/GLOBULIN RATIO 1.1 (1.0-2.7); ALKALINE PHOSPHATASE 84 U/L (46-116); ASPARTATE AMINO TRANSFERASE 24 U/L (15-37); BILIRUBIN,TOTAL 1.9 MG/DL (0.2-1.0)
[2018-12-25 19:36] LABS: BILIRUBIN,DIRECT 0.6 MG/DL (0.0-0.3)
[2018-12-25] MEDS ORDERED: Cefepime HCl 1 GM in D5W 55 ML IVPB ONE (20:30)
--- NOTE | 2018-12-25 21:19 | Emergency Room Report ---
History of Present Illness General Chief Complaint: Complications Source: Patient Present Illness HPI 23-year-old female presents ED for evaluation. Plating of lower cramping pain and vomiting last 2 days. States she is . Cramping is 7 out of 10, nonradiating. Denies any vaginal bleeding or spotting. States that she was recently admitted here for a kidney infection and was discharged. States she completed the antibiotics but she still having back pain and dysuria. Denies fevers or chills. States she was admitted for a possible ectopic but was ruled out. States she saw her JU[employer] BOX SERVICER after the discharge and states that they saw a gestational sac on ultrasound. No other aggravating relieving factors. Denies any other associated symptoms Allergies: Coded Allergies: No Known Allergies (Unverified , 12/05/18) Patient History Past Medical History: none Past Surgical History: none Pertinent Family History: none Social History: Denies: smoking, alcohol use, drug use Last Menstrual Period: 11-20 Now: Yes : 21 Immunizations: UTD Reviewed Nursing Documentation: PMH: Agreed; PSxH: Agreed Nursing Documentation-PMH Past Medical History: No History, Except For Review of Systems All Other Systems: negative except mentioned in HPI Physical Exam Vital Signs Date Time Temp Pulse Resp B/P (MAP) Pulse Ox O2 Delivery O2 Flow Rate FiO2 12/25/18 18:27 98.2 62 18 116/56 98 Room Air Sp02 EP Interpretation: reviewed, normal General Appearance: no apparent distress, alert, GCS 15, non-toxic Head: normocephalic, atraumatic Eyes: bilateral eye normal inspection, bilateral eye PERRL ENT: hearing grossly normal, normal pharynx, no angioedema, normal voice Neck: full range of motion, supple/symm/no masses Respiratory: chest non-tender, lungs clear, normal breath sounds, speaking full sentences Cardiovascular #1: regular rate, rhythm, no edema Cardiovascular #2: 2+ carotid (R), 2+ carotid (L), 2+ radial (R), 2+ radial (L) , 2+ dorsalis pedis (R), 2+ dorsalis pedis (L) Gastrointestinal: normal bowel sounds, non tender, soft, non-distended, no guarding, no rebound Rectal: deferred Genitourinary: normal inspection, CVA tenderness (R), CVA tenderness (L) Musculoskeletal: back normal, gait/station normal, normal range of motion, non- tender Neurologic: alert, oriented x3, responsive, motor strength/tone normal, sensory intact, speech normal Psychiatric: judgement/insight normal, memory normal, mood/affect normal, no suicidal/homicidal ideation Reflexes: 3+ bicep (R), 3+ bicep (L), 3+ tricep (R), 3+ tricep (L), 3+ knee (R) , 3+ knee (L) Skin: normal color, no rash, warm/dry, well hydrated Lymphatic: no adenopathy Medical Decision Making Diagnostic Impression: Primary Impression: Pyelonephritis Additional Impressions: Intractable vomiting Qualified Codes: R11.2 - Nausea with vomiting, unspecified Qualified Codes: Z3A.01 - Less than 8 weeks gestation of ER Course Hospital Course 23 yo F present with back pain, vomiting, cramping pain. + Differential diagnoses include: UTI, cystitis, pyelonephritis Clinical course Patient placed on stretcher. After initial history and physical I ordered UA, labs, IV fluids, zofran, OB US labs - noted leukocytosis noted, hb/hematocrit stable, electrolytes okay, UA grossly positive, BHCG > 90,000 OB ultrasound shows IUP about 7 weeks' with good heart rate findings consistent with pyelonephritis. Patient has persistent vomiting. Because patient is patient will require inpatient admission for IV antibiotics. given cefepime Case discussed with Dr. Temple and he agreed to accept the patient to his service for further care and support Diagnosis - pyelonephritis, intractable vomiting, Admitted to floor in serious condition Labs Test 12/25/18 19:03 White Blood Count 14.3 K/UL (4.8-10.8) Red Blood Count 4.87 M/UL (4.20-5.40) Hemoglobin 14.0 G/DL (12.0-16.0) Hematocrit 41.7 % (37.0-47.0) Mean Corpuscular Volume 86 FL (80-99) Mean Corpuscular Hemoglobin 28.7 PG (27.0-31.0) Mean Corpuscular Hemoglobin Concent 33.5 G/DL (32.0-36.0) Red Cell Distribution Width 10.8 % (11.6-14.8) Platelet Count 274 K/UL (150-450) Mean Platelet Volume 7.3 FL (6.5-10.1) Neutrophils (%) (Auto) 73.6 % (45.0-75.0) Lymphocytes (%) (Auto) 17.2 % (20.0-45.0) Monocytes (%) (Auto) 7.7 % (1.0-10.0) Eosinophils (%) (Auto) 0.6 % (0.0-3.0) Basophils (%) (Auto) 0.9 % (0.0-2.0) Urine Color Allison Urine Appearance Slightly cloudy Urine pH 5 (4.5-8.0) Urine Specific [place] 1.025 (1.005-1.035) Urine Protein 1+ (NEGATIVE) Urine Glucose (UA) Negative (NEGATIVE) Urine Ketones 3+ (NEGATIVE) Urine Blood 1+ (NEGATIVE) Urine Nitrite Negative (NEGATIVE) Urine Bilirubin 2+ (NEGATIVE) Urine Ictotest Positive (NEGATIVE) Urine Urobilinogen 12 MG/DL (0.0-1.0) Urine Leukocyte Esterase 2+ (NEGATIVE) Urine RBC 5-10 /HPF (0 - 2) Urine WBC 2-4 /HPF (0 - 2) Urine Squamous Epithelial Cells Moderate /LPF (NONE/OCC) Urine Bacteria Few /HPF (NONE) Urine HCG, Qualitative Positive (NEGATIVE) Sodium Level 136 MMOL/L (136-145) Potassium Level 3.8 MMOL/L (3.5-5.1) Chloride Level 100 MMOL/L (98-107) Carbon Dioxide Level 22 MMOL/L (21-32) Anion Gap 14 mmol/L (5-15) Blood Urea Nitrogen 6 mg/dL (7-18) Creatinine 0.7 MG/DL (0.55-1.30) Estimat Glomerular Filtration Rate > 60 mL/min (>60) Glucose Level 82 MG/DL (74-106) Calcium Level 10.0 MG/DL (8.5-10.1) Total Bilirubin 1.9 MG/DL (0.2-1.0) Direct Bilirubin 0.6 MG/DL (0.0-0.3) Aspartate Amino Transf (AST/SGOT) 24 U/L (15-37) Alanine Aminotransferase (ALT/SGPT) 55 U/L (12-78) Alkaline Phosphatase 84 U/L (46-116) Total Protein 8.0 G/DL (6.4-8.2) Albumin 4.1 G/DL (3.4-5.0) Globulin 3.9 g/dL Albumin/Globulin Ratio 1.1 (1.0-2.7) Lipase 192 U/L (73-393) Human Chorionic Gonadotropin, Quant 68379 mIU/mL (1-6) CT/MRI/US Diagnostic Results CT/MRI/US Diagnostic Results : Imaging Test Ordered: US Impression Single live IUP with an estimated gestational age of 7 weeks 2 days. Normal heart tones. Small amount of free fluid the pelvis. Probable corpus luteum within the right ovary. Otherwise the ovaries are unremarkable. Last Vital Signs Date Time Temp Pulse Resp B/P (MAP) Pulse Ox O2 Delivery O2 Flow Rate FiO2 12/25/18 18:27 98.2 62 18 116/56 98 Room Air Status: improved Disposition: ADMITTED INPATIENT Condition: Serious Referrals: NON PHYSICIAN (PCP) Jewel Buenrostro MD Dec 25, 2018 21:19
[2018-12-25] MEDS ORDERED: cefTRIAXone 2 GM in D5W 55 ML IVPB SCH (23:00)
[2018-12-26] VITALS: BP 110/58
[2018-12-26 04:00] VITALS: BP 101/47
[2018-12-26 08:00] VITALS: BP 110/59
[2018-12-26] MEDS: cefTRIAXone 1 GM in D5W 55 ML IVPB SCH (08:42)
--- NOTE | 2018-12-26 10:08 | Diagnostic Imaging Report ---
Indication: Pelvic pain, patient Technique: Transabdominal and transvaginal images of the pelvis. Doppler interrogation of the bilateral ovaries Comparison: none Findings: Uterus measures 9.6 and is length by 6.3 cm AP. Within the endometrium, there is a gestational sac. This contains a pole with a crown-rump length of 1.1 cm, corresponding to estimated gestational age 7 weeks 2 days. There is positive heart activity, heart rate 149 bpm. No subchorionic hemorrhage demonstrated. No myometrial abnormality. Left ovary measures 3.5 cm length. Right ovary measures 3.8 cm length. Both ovaries demonstrate normal flow. There is a small amount of free cul-de-sac fluid. No adnexal mass. Impression: 7 week 2 day, by crown-rump length measurement, single live intrauterine . No unusual features Small amount of free cul-de-sac fluid This agrees with the preliminary interpretation provided overnight by [facility] teleradiology service.
[2018-12-26] MEDS: D5 1/2NS 1,000 ML IV SCH ×2 (11:40→21:30)
[2018-12-26 12:00] VITALS: BP 108/57
--- NOTE | 2018-12-26 14:15 | History and Physical Report ---
DATE OF ADMISSION: 12/25/2018 HISTORY OF PRESENT ILLNESS: This is a 23-year-old female, came to the emergency room for abdominal pain, nausea, and vomiting, has been for last two months, but progressively worse. The patient denies any fever or chills, unable to keep down anything. The patient has a history of pyelonephritis before, was discharged couple weeks ago. PAST MEDICAL HISTORY: about three months. PHYSICAL EXAMINATION: VITAL SIGNS: Blood pressure 110/59, pulse 63, temperature is 98.6. HEENT: NAD. CHEST: Bilaterally clear. CARDIOVASCULAR: Regular rhythm. No gallop. No murmur. ABDOMEN: Soft. Positive bowel sounds. EXTREMITIES: No CCE. NEUROLOGIC: Generalized weakness. LABORATORY EXAMINATION: White counts are 15,000, hemoglobin 14, hematocrit 42, and platelets are 274. Chemistry panel, sodium 136, potassium 3.8, BUN 6, creatinine 0.7, and glucose is . Her hCG 96,392. Urine showing 3+ ketones, 1+ blood, 2+ bilirubin, 2+ leukocyte esterase, and moderate bacteria. ASSESSMENT AND PLAN: 1. Pyelonephritis. 2. UTI. 3. . We will continue ceftriaxone, IV fluid, and Zofran. Consider ID consultation. Thanh Temple M.D. DR: GABRIELLE JOB#: [id number] CC:
--- NOTE | 2018-12-26 14:30 | Consultation ---
DATE OF CONSULTATION: 12/26/2018 INFECTIOUS DISEASES CONSULTATION: CONSULTING PHYSICIAN: Ella Frias M.D. REFERRING PHYSICIAN: Thanh Temple M.D. REASON FOR CONSULTATION: Urinary tract infection. HISTORY OF PRESENT ILLNESS: This is a 23-year-old lady who is 7 weeks who comes in now with abdominal pain along with nausea and vomiting. She was found to have urinary tract infection and an Infectious Diseases consultation has been obtained for antibiotics. PAST MEDICAL HISTORY: Seven weeks . SOCIAL HISTORY: She does not smoke, drink, or use drugs. FAMILY HISTORY: Noncontributory. REVIEW OF SYSTEMS: RESPIRATORY: No fever, chills, cough, shortness of breath, or chest pain. CARDIAC: No chest pain. No palpitation. No dizziness. No syncope. GASTROINTESTINAL: She has nausea and vomiting. She has abdominal cramps. No diarrhea. GENITOURINARY: No dysuria. No hematuria. MEDICATIONS: As an inpatient, she is on ceftriaxone, Zofran, Tylenol. ALLERGIES: No known drug allergies. PHYSICAL EXAMINATION: VITAL SIGNS: Temperature of 98.6, T-max of 98.8, pulse of 63, respiratory rate 16, blood pressure 110/59, O2 saturation of 100%. HEENT: Pupils equally reactive to light and accommodation. Mouth appears clean. No thrush. NECK: Supple. No adenopathy. No JVD. CARDIOVASCULAR: Regular rate and rhythm. No murmurs. LUNGS: Clear to auscultation bilaterally. No crackles. No wheezes. ABDOMEN: Soft and nontender. No organomegaly. No CVA tenderness. EXTREMITIES: No cyanosis, no clubbing, no edema. LABORATORY DATA: White count 14.3, hemoglobin 14, hematocrit 41.7, MCV 86, platelet count 274 with neutrophils of 73%. Sodium 136, potassium 3.8, chloride 100, bicarb 22, BUN 6, creatinine 0.7, glucose 82, calcium 10. Total bilirubin 1.9, direct bilirubin 0.6, AST 24, ALT 55, alkaline phosphatase 84. Total protein 8. Albumin 4.1. Lipase 192. UA showing 2 to 4 white cells. Beta hCG 88610. Ultrasound of the abdomen showing 7 weeks 2 days live intrauterine . ASSESSMENT: 1. This is a 23-year-old lady with history of 7 weeks who comes in now with nausea, vomiting, and abdominal cramps. We would like to rule out urinary tract infection as a possibility. 2. Seven weeks . 3. Leukocytosis. PLAN: 1. Continue ceftriaxone. 2. We will order urine cultures. 3. We will follow up cultures and adjust antibiotics accordingly. I would like to thank Dr. Temple for this consultation. Ella Frias M.D. DR: COURT JOB#: [id number] CC: Thanh Temple M.D.; Fax#: [phone]
[2018-12-26] MEDS ORDERED: D5 1/2NS 1000ml IV ONE (15:21)
[2018-12-26 16:00] VITALS: BP 116/53
[2018-12-26 20:00] VITALS: BP 119/50
[2018-12-27] VITALS: BP 105/42
[2018-12-27 04:00] VITALS: BP 111/42
[2018-12-27] MEDS: D5 1/2NS 1,000 ML IV SCH ×2 (05:46→16:47)
[2018-12-27 08:00] VITALS: BP 106/43
[2018-12-27] MEDS: cefTRIAXone 1 GM in D5W 55 ML IVPB SCH (08:36)
--- NOTE | 2018-12-27 10:57 | Infectious Diseases Prog Note ---
Assessment/Plan Assessment/Plan antibiotics : ceftriaxone A 1. UTI 2. 7 week P 1. continue ceftriaxone 2. will follow up cultures Subjective Constitutional: Denies: fever, chills Respiratory: Denies: shortness of breath, dry cough Gastrointestinal/Abdominal: Reports: nausea, vomiting; Denies: diarrhea Musculoskeletal: Reports: pain - in back Allergies: Coded Allergies: No Known Allergies (Unverified , 12/05/18) Objective Vital Signs Last 24 Hour Vital Signs Date Time Temp Pulse Resp B/P (MAP) Pulse Ox O2 Delivery O2 Flow Rate FiO2 12/27/18 09:00 Room Air 12/27/18 08:00 98.0 60 18 106/43 (64) 99 12/27/18 04:00 96.8 55 18 111/42 (65) 100 12/27/18 00:00 97.5 55 18 105/42 (63) 100 12/26/18 21:00 Room Air 12/26/18 20:00 98.4 64 18 119/50 (73) 99 12/26/18 16:00 98.9 71 16 116/53 (74) 100 12/26/18 12:00 98.4 60 16 108/57 (74) 98 Height (Feet): 5 Height (Inches): 7.00 Weight (Pounds): 174 Respiratory/Chest: lungs clear Cardiovascular: normal rate, regular rhythm, no gallop/murmur Abdomen: soft, non tender Extremities: no edema Microbiology Date/Time Source Procedure Growth Status 12/26/18 11:45 Urine,Clean Catch Urine Culture - Preliminary NO GROWTH Resulted Current Medications Medications (Trade) Dose Ordered Sig/Osman Route PRN Reason Start Time Stop Time Status Last Admin Dose Admin Acetaminophen (Tylenol) 650 mg Q4H PRN ORAL Mild Pain/Temp > 100.5 12/25/18 21:45 01/24/19 21:44 12/25/18 22:16 Bisacodyl (Dulcolax) 10 mg BIDPRN PRN RECTAL Constipation 12/26/18 10:30 01/25/19 10:29 12/26/18 11:40 Ceftriaxone Sodium 1 gm/ Dextrose 55 ml @ 110 mls/hr Q24H IVPB 12/26/18 09:00 01/02/19 08:59 12/27/18 08:36 Dextrose/Sodium Chloride 1,000 ml @ 100 mls/hr Q10H IV 12/26/18 11:07 01/25/19 11:06 12/27/18 05:46 Ondansetron HCl (Zofran) 4 mg Q4H PRN IVP Nausea & Vomiting 12/25/18 21:45 01/24/19 21:44 12/26/18 21:58 Ella Frias MD Dec 27, 2018 10:57
[2018-12-27 12:00] VITALS: BP 96/57
[2018-12-27 16:00] VITALS: BP 104/56
[2018-12-27 20:00] VITALS: BP 100/45
--- NOTE | 2018-12-27 22:45 | Progress Note ---
DATE: 12/27/2018 SUBJECTIVE: This is a female who still is having nausea, vomiting, and had a dizziness episode this morning. The patient is unable to eat, but she is starting having a small bites. OBJECTIVE: VITAL SIGNS: Blood pressure 104/56, pulse 60, no fever. CHEST: Bilaterally clear. CARDIOVASCULAR: Regular rhythm. ABDOMEN: Soft. EXTREMITIES: No CCE. NEUROLOGICAL: Generalized weakness. ASSESSMENT AND PLAN: 1. Acute pyelonephritis. 2. Dehydration. 3. . Increase p.o. fluid. Continue antibiotics. ID is on consult. Thanh Temple M.D. DR: DAVID JOB#: [id number] CC:
[2018-12-28] VITALS: BP 114/49
[2018-12-28] MEDS: D5 1/2NS 1,000 ML IV SCH ×3 (03:07→23:52)
[2018-12-28 04:00] VITALS: BP 103/74
[2018-12-28 08:00] VITALS: BP 104/39
[2018-12-28] MEDS: cefTRIAXone 1 GM in D5W 55 ML IVPB SCH (09:26)
[2018-12-28] MEDS ORDERED: D5 1/2NS 1000ml IV ONE (10:58)
--- NOTE | 2018-12-28 11:34 | Infectious Diseases Prog Note ---
Assessment/Plan Assessment/Plan antibiotics : ceftriaxone A 1. UTI 2. 7 week P 1. continue ceftriaxone 3 more days 2. will follow up cultures Subjective Constitutional: Denies: fever, chills Respiratory: Denies: shortness of breath, dry cough Gastrointestinal/Abdominal: Reports: nausea, vomiting; Denies: diarrhea Musculoskeletal: Denies: pain Allergies: Coded Allergies: No Known Allergies (Unverified , 12/05/18) Objective Vital Signs Last 24 Hour Vital Signs Date Time Temp Pulse Resp B/P (MAP) Pulse Ox O2 Delivery O2 Flow Rate FiO2 12/28/18 09:00 Room Air 12/28/18 08:00 97.0 52 21 104/39 (60) 100 12/28/18 04:00 97.9 55 18 103/74 (84) 98 12/28/18 00:00 97.8 50 17 114/49 (70) 99 12/27/18 21:00 Room Air 12/27/18 20:00 97.8 64 18 100/45 (63) 100 12/27/18 17:18 98.9 12/27/18 16:00 98.6 60 20 104/56 (72) 100 12/27/18 12:00 98.9 60 19 96/57 (70) 100 Height (Feet): 5 Height (Inches): 7.00 Weight (Pounds): 172 Respiratory/Chest: lungs clear Cardiovascular: normal rate, regular rhythm, no gallop/murmur Abdomen: soft, non tender Extremities: no edema Microbiology Date/Time Source Procedure Growth Status 12/25/18 21:02 Nasal Nares MRSA Culture - Final NO METHICILLIN RESISTANT STAPH AUREUS... Complete 12/26/18 11:45 Urine,Clean Catch Urine Culture - Preliminary Mixed Gram Positive Organism Resulted Current Medications Medications (Trade) Dose Ordered Sig/Osman Route PRN Reason Start Time Stop Time Status Last Admin Dose Admin Acetaminophen (Tylenol) 650 mg Q4H PRN ORAL Mild Pain/Temp > 100.5 12/25/18 21:45 01/24/19 21:44 12/27/18 16:48 Bisacodyl (Dulcolax) 10 mg BIDPRN PRN RECTAL Constipation 12/26/18 10:30 01/25/19 10:29 12/26/18 11:40 Ceftriaxone Sodium 1 gm/ Dextrose 55 ml @ 110 mls/hr Q24H IVPB 12/26/18 09:00 01/02/19 08:59 12/28/18 09:26 Dextrose/Sodium Chloride 1,000 ml @ 100 mls/hr Q10H IV 12/26/18 11:07 01/25/19 11:06 12/28/18 03:07 Ondansetron HCl (Zofran) 4 mg Q4H PRN IVP Nausea & Vomiting 12/25/18 21:45 01/24/19 21:44 12/28/18 09:33 Ella Frias MD Dec 28, 2018 11:34
[2018-12-28 12:15] VITALS: BP 118/53
--- NOTE | 2018-12-28 15:11 | GI Initial Consult Note ---
History of Present Illness General Date patient seen: Dec 28, 2018 Time patient seen: 12:00 Reason for Hospitalization: Complications Referring physician: COLLIN SALGUERO Reason for Consultation: N/V Present Illness HPI 23-year-old female presents ED for evaluation. Plating of lower cramping pain and vomiting last 2 days. States she is . Cramping is 7 out of 10, nonradiating. Denies any vaginal bleeding or spotting. States that she was recently admitted here for a kidney infection and was discharged. States she completed the antibiotics but she still having back pain and dysuria. Denies fevers or chills. States she was admitted for a possible ectopic but was ruled out. States she saw her AUTOMATION AND CONTROLS MANAGER after the discharge and states that they saw a gestational sac on ultrasound. No other aggravating relieving factors. Denies any other associated symptoms. GI consulted for N/V. Initial HPI noted above. Pt seen, awake A&Ox4 has complaint of severe nausea with episodes of emesis. States that Zofran has been unable to relieve her symptoms. Denies any hematemesis or coffee grounds. Labs reviewed; noted with leukocytosis, no anemia, and elevated HCG. No history of endoscopy colonoscopy. Home Meds Reported Medications No Known Medications* (NKM - No Known Medications*) ., 0 ., 0 Refills 12/05/18 No Known Medications* (NKM - No Known Medications*) ., 0 ., 0 Refills 09/03/13 Med list reviewed/reconciled: Yes Allergies: Coded Allergies: No Known Allergies (Unverified , 12/05/18) Patient History History Provided By: Patient, Medical Record PMH Narrative Past Medical History: none Past Surgical History: none Pertinent Family History: none Social History: Denies: smoking, alcohol use, drug use Last Menstrual Period: 11-20 Now: Yes : 21 Immunizations: UTD Reviewed Nursing Documentation: PMH: Agreed; PSxH: Agreed Nursing Documentation-PMH Past Medical History: No History, Except For Social History: Denies: smoking, alcohol use, drug use, other Review of Systems All Other Systems: negative except mentioned in HPI Physical Exam Vital Signs Date Time Temp Pulse Resp B/P (MAP) Pulse Ox O2 Delivery O2 Flow Rate FiO2 12/25/18 18:27 98.2 62 18 116/56 98 Room Air Sp02 EP Interpretation: reviewed, normal General Appearance: well appearing, no apparent distress, alert Head: normocephalic EENT: PERRL/EOMI, normal ENT inspection Neck: supple Respiratory: normal breath sounds, no respiratory distress Cardiovascular: normal rate Gastrointestinal: normal inspection, non tender, soft, normal bowel sounds, non -distended Rectal: deferred Genitourinary: no CVA tenderness Musculoskeletal: normal inspection, back normal Neurologic: normal inspection, alert, oriented x3, responsive Psychiatric: normal inspection, judgement/insight normal, memory normal Skin: normal inspection, normal color, no rash, warm/dry, palpation normal, well hydrated Lymphatic: normal inspection, no adenopathy Current Medications Current Medications Medications (Trade) Dose Ordered Sig/Osman Route PRN Reason Start Time Stop Time Status Last Admin Dose Admin Acetaminophen (Tylenol) 650 mg Q4H PRN ORAL Mild Pain/Temp > 100.5 12/25/18 21:45 01/24/19 21:44 12/27/18 16:48 Bisacodyl (Dulcolax) 10 mg BIDPRN PRN RECTAL Constipation 12/26/18 10:30 01/25/19 10:29 12/26/18 11:40 Ceftriaxone Sodium 1 gm/ Dextrose 55 ml @ 110 mls/hr Q24H IVPB 12/26/18 09:00 01/02/19 08:59 12/28/18 09:26 Dextrose/Sodium Chloride 1,000 ml @ 100 mls/hr Q10H IV 12/26/18 11:07 01/25/19 11:06 12/28/18 13:06 Ondansetron HCl (Zofran) 4 mg Q4H PRN IVP Nausea & Vomiting 12/25/18 21:45 01/24/19 21:44 12/28/18 09:33 GI: Plan Problems: (1) Hyperemesis gravidarum (2) Intractable vomiting (3) Urinary tract infection (4) Dehydration (5) Electrolyte imbalance Plan zofran prn, add reglan prn for persistent nausea or vomiting. Both drugs are FDA category B and safe for use in . revert patient to NPO if patient has persistent vomiting, advance diet as tolerated IV/PO hydration + electrolyte correction fu BYPRODUCTS MAKER recs fu labs Discussed with Dr. Figueroa. Thank you for this patient referral, we will follow. The patient was seen and examined at bedside and all new and available data was reviewed in the patients chart. I agree with the above findings, impression and plan. (Patient seen earlier today. Signature stamp does not reflect patient encounter time.). - MD Ember SmithV[facility] PhoenixAdam WILLS Dec 28, 2018 15:11
[2018-12-28] MEDS ORDERED: Metoclopramide 10mg/2ml Inj IVP PRN (15:15)
[2018-12-28 16:00] VITALS: BP 130/77
--- NOTE | 2018-12-28 17:35 | Consultation ---
Consult Note Consult Note GYNECOLOGY CONSULT NOTE CC: Nausea/vomiting of , pyelonephritis HPI: Patient is a 23yo with LMP 10/18 who was admitted with nausea/ vomiting and inability to tolerate PO for >1week, as well as left-sided flank pain. She was diagnosed with pyelonephritis and has been receiving IV Rocephin qday. She continues to have inability to tolerate PO and has been given Zofran prn without significant improvement in her PO intake. Her last emesis was today and the patient endorses blood in her vomit. She denies any VB, but has had some mild intermittent lower abdominal cramping. She reports that her back pain is improved. She denies fever/chills, CP, SOB. Ultrasound done in-house confirms an IUP with NADEEN 08/11/19. Her OB is Dr. Atkins in [place]. PMH: Hx of pyelo in the past. Denies hx of HTN, asthma, DM, or thyroid dz. PSH: Denies Meds: PNV Allergies: NKDA OBHx: - x 1 (2003), term, 7#8oz baby boy. uncomplicated GYNHx: Last Pap 3w ago, no hx abnl Pap. No hx of cysts or fibroids. 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 Lives with mother FamHx: Denies hx of CA, no SD, no VTE, no CVA Vitals: TMax: 98.7, BP 118/53, P 54, RR 19, O2 96% RA Exam: Gen: NAD HEENT: OP clear, MM somewhat dry Neuro: intact grossly CV: Reg rate Pulm: No crackles or wheezes Abd: Soft, NTND Pelvic: Deferred Ext: No calf TTP Labs: Test 12/25/18 19:03 White Blood Count 14.3 K/UL (4.8-10.8) Red Blood Count 4.87 M/UL (4.20-5.40) Hemoglobin 14.0 G/DL (12.0-16.0) Hematocrit 41.7 % (37.0-47.0) Mean Corpuscular Volume 86 FL (80-99) Mean Corpuscular Hemoglobin 28.7 PG (27.0-31.0) Mean Corpuscular Hemoglobin Concent 33.5 G/DL (32.0-36.0) Red Cell Distribution Width 10.8 % (11.6-14.8) Platelet Count 274 K/UL (150-450) Mean Platelet Volume 7.3 FL (6.5-10.1) Neutrophils (%) (Auto) 73.6 % (45.0-75.0) Lymphocytes (%) (Auto) 17.2 % (20.0-45.0) Monocytes (%) (Auto) 7.7 % (1.0-10.0) Eosinophils (%) (Auto) 0.6 % (0.0-3.0) Basophils (%) (Auto) 0.9 % (0.0-2.0) Urine Color Allison Urine Appearance Slightly cloudy Urine pH 5 (4.5-8.0) Urine Specific [place] 1.025 (1.005-1.035) Urine Protein 1+ (NEGATIVE) Urine Glucose (UA) Negative (NEGATIVE) Urine Ketones 3+ (NEGATIVE) Urine Blood 1+ (NEGATIVE) Urine Nitrite Negative (NEGATIVE) Urine Bilirubin 2+ (NEGATIVE) Urine Ictotest Positive (NEGATIVE) Urine Urobilinogen 12 MG/DL (0.0-1.0) Urine Leukocyte Esterase 2+ (NEGATIVE) Urine RBC 5-10 /HPF (0 - 2) Urine WBC 2-4 /HPF (0 - 2) Urine Squamous Epithelial Cells Moderate /LPF (NONE/OCC) Urine Bacteria Few /HPF (NONE) Urine HCG, Qualitative Positive (NEGATIVE) Sodium Level 136 MMOL/L (136-145) Potassium Level 3.8 MMOL/L (3.5-5.1) Chloride Level 100 MMOL/L (98-107) Carbon Dioxide Level 22 MMOL/L (21-32) Anion Gap 14 mmol/L (5-15) Blood Urea Nitrogen 6 mg/dL (7-18) Creatinine 0.7 MG/DL (0.55-1.30) Estimat Glomerular Filtration Rate > 60 mL/min (>60) Glucose Level 82 MG/DL (74-106) Calcium Level 10.0 MG/DL (8.5-10.1) Total Bilirubin 1.9 MG/DL (0.2-1.0) Direct Bilirubin 0.6 MG/DL (0.0-0.3) Aspartate Amino Transf (AST/SGOT) 24 U/L (15-37) Alanine Aminotransferase (ALT/SGPT) 55 U/L (12-78) Alkaline Phosphatase 84 U/L (46-116) Total Protein 8.0 G/DL (6.4-8.2) Albumin 4.1 G/DL (3.4-5.0) Globulin 3.9 g/dL Albumin/Globulin Ratio 1.1 (1.0-2.7) Lipase 192 U/L (73-393) Human Chorionic Gonadotropin, Quant 12230 mIU/mL (1-6) Imaging: OB US on 12/25/18: Findings: Uterus measures 9.6 and is length by 6.3 cm AP. Within the endometrium , there is a gestational sac. This contains a pole with a crown-rump length of 1.1 cm, corresponding to estimated gestational age 7 weeks 2 days. There is positive heart activity, heart rate 149 bpm. No subchorionic hemorrhage demonstrated. No myometrial abnormality. Left ovary measures 3.5 cm length. Right ovary measures 3.8 cm length. Both ovaries demonstrate normal flow. There is a small amount of free cul-de-sac fluid. No adnexal mass. Impression: 7 week 2 day, by crown-rump length measurement, single live intrauterine . No unusual features Small amount of free cul-de-sac fluid Assessment/Plan 23yo at 7w5d by US performed in house (NADEEN 08/11/19) admitted with nausea /vomiting of (hyperemesis gravidarum) and pyelonephritis. - Recommend around the clock antiemetics with additional meds prn for breakthrough (Zofran 8mg q8h scheduled and Phenergan 25mg or Reglan 10mg IV for breakthrough nausea) - Recommend IV Banana bag for electrolyte repletion with addition of B6 for nausea - Recommend SCDs to prevent DVT - Recommend repeat US prior to discharge to confirm viability and follow up with her Primary OB in 1 week - At discharge, recommend continue outpatient oral antiemetics around the clock for treatment of nausea, as well as Doxylamine 20mg + B6 20mg qhs for prophylaxis - Patient has been afebrile for >24h, and urine culture only growing out colonizers. Consider stopping IV antibiotics. - Once patient is tolerating PO, and has been deemed cleared for d/c by her primary in-house MD, she will be stable for discharge from an PRODUCT DEVELOPMENT ASSISTANT perspective. Thank you for this interesting consult. Feel free to contact me with any additional questions or concerns. Signed: MD Suzanna Curry Carla M.D. Dec 28, 2018 17:35
[2018-12-28 20:00] VITALS: BP 110/61
--- NOTE | 2018-12-28 22:45 | Progress Note ---
DATE: 12/28/2018 SUBJECTIVE: This is a young female, who is still complaining of nausea, vomiting and have not eaten any food. The patient denies any abdominal pain, but recurrent nausea and vomiting. PHYSICAL EXAMINATION: ABDOMEN: Soft. Positive bowel sounds. EXTREMITIES: CCE. ASSESSMENT AND PLAN: 1. Pyelonephritis. 2. . We will consider PRIVATE CHEF consult. Add Zofran. Continue antibiotic. Continue IV fluid. Thanh Temple M.D. DR: DAVID JOB#: [id number] CC:
[2018-12-29] VITALS: BP 124/77
[2018-12-29 08:00] VITALS: BP 107/48
[2018-12-29 08:35] LABS: BASOPHILS % (AUTO) 0.5 % (0.0-2.0); HEMATOCRIT 37.2 % (37.0-47.0); HEMOGLOBIN 12.6 G/DL (12.0-16.0); LYMPHOCYTES % (AUTO) 19.9 % (20.0-45.0); MEAN CORPUSCULAR VOLUME 86 FL (80-99); MONOCYTES % (AUTO) 8.5 % (1.0-10.0); NEUTROPHILS % (AUTO) 70.2 % (45.0-75.0); PLATELET COUNT 251 K/UL (150-450); RED BLOOD COUNT 4.35 M/UL (4.20-5.40); WHITE BLOOD COUNT 13.1 K/UL (4.8-10.8)
[2018-12-29] MEDS: cefTRIAXone 1 GM in D5W 55 ML IVPB SCH (08:50)
[2018-12-29] MEDS: D5 1/2NS 1,000 ML IV SCH (08:51)
[2018-12-29 09:27] LABS: PHOSPHORUS 4.1 MG/DL (2.5-4.9)
[2018-12-29 09:30] LABS: ALANINE AMINOTRANSFERASE 74 U/L (12-78); ALBUMIN 3.3 G/DL (3.4-5.0); ALKALINE PHOSPHATASE 75 U/L (46-116); ANION GAP 12 mmol/L (5-15); ASPARTATE AMINO TRANSFERASE 33 U/L (15-37); BILIRUBIN,TOTAL 1.9 MG/DL (0.2-1.0); BLOOD UREA NITROGEN 2 mg/dL (7-18); CALCIUM 9.4 MG/DL (8.5-10.1); CARBON DIOXIDE 22 MMOL/L (21-32); CHLORIDE 104 MMOL/L (98-107); CREATININE 0.6 MG/DL (0.55-1.30); POTASSIUM 3.3 MMOL/L (3.5-5.1); SODIUM 138 MMOL/L (136-145)
[2018-12-29 09:41] LABS: BILIRUBIN,DIRECT 0.6 MG/DL (0.0-0.3)
[2018-12-29] MEDS ORDERED: Magnesium Chloride w/Calcium Tab ORAL SCH (10:14)
[2018-12-29] MEDS ORDERED: ZOFRAN4 M3 ORAL (10:42)
[2018-12-29] MEDS ORDERED: CEPHALEXIN500 MG ORAL (10:42)
--- NOTE | 2018-12-29 10:44 | GI Progress Note ---
Assessment/Plan Problems: (1) Electrolyte imbalance ICD Codes: E87.8 - Other disorders of electrolyte and fluid balance, not elsewhere classified SNOMED: 117450691 (2) Dehydration ICD Codes: E86.0 - Dehydration SNOMED: 07711266 (3) Hyperemesis gravidarum ICD Codes: O21.0 - Mild hyperemesis gravidarum SNOMED: 01838418 (4) Urinary tract infection ICD Codes: N39.0 - Urinary tract infection, site not specified SNOMED: 39781380 (5) Intractable vomiting ICD Codes: R11.10 - Vomiting, unspecified SNOMED: 534444176 Qualifiers: Qualified Codes: R11.2 - Nausea with vomiting, unspecified Status: stable Status Narrative Discussed with Dr. Figueroa Assessment/Plan Symptomatic treatment zofran prn, add reglan prn for persistent nausea or vomiting. Both drugs are FDA category B and safe for use in . revert patient to NPO if patient has persistent vomiting, advance diet as tolerated IV/PO hydration + electrolyte correction fu TEMPORARY DATA ENTRY CLERK recs fu labs The patient was seen and examined at bedside and all new and available data was reviewed in the patients chart. I agree with the above findings, impression and plan. (Patient seen earlier today. Signature stamp does not reflect patient encounter time.). - Andrew Figueroa MD Subjective Subjective Still has complaint of nausea and vomiting Objective Last 24 Hour Vital Signs Date Time Temp Pulse Resp B/P (MAP) Pulse Ox O2 Delivery O2 Flow Rate FiO2 12/29/18 09:00 Room Air 12/29/18 08:00 97.6 48 16 107/48 (67) 97 12/29/18 00:00 98.7 66 16 124/77 (93) 99 12/28/18 21:00 Room Air 12/28/18 20:00 97.9 64 18 110/61 (77) 98 12/28/18 16:00 98.0 71 21 130/77 (94) 99 12/28/18 12:15 98.7 52 19 118/53 (74) 96 Intake and Output 12/28/18 12/29/18 19:00 07:00 Intake Total 1290 ml 1220 ml Balance 1290 ml 1220 ml Intake Oral 240 ml 120 ml IV Total 1050 ml 1100 ml # Voids 3 Laboratory Tests Test 12/29/18 06:52 White Blood Count 13.1 K/UL (4.8-10.8) H Red Blood Count 4.35 M/UL (4.20-5.40) Hemoglobin 12.6 G/DL (12.0-16.0) Hematocrit 37.2 % (37.0-47.0) Mean Corpuscular Volume 86 FL (80-99) Mean Corpuscular Hemoglobin 29.1 PG (27.0-31.0) Mean Corpuscular Hemoglobin Concent 34.0 G/DL (32.0-36.0) Red Cell Distribution Width 11.0 % (11.6-14.8) L Platelet Count 251 K/UL (150-450) Mean Platelet Volume 7.6 FL (6.5-10.1) Neutrophils (%) (Auto) 70.2 % (45.0-75.0) Lymphocytes (%) (Auto) 19.9 % (20.0-45.0) L Monocytes (%) (Auto) 8.5 % (1.0-10.0) Eosinophils (%) (Auto) 1.0 % (0.0-3.0) Basophils (%) (Auto) 0.5 % (0.0-2.0) Sodium Level 138 MMOL/L (136-145) Potassium Level 3.3 MMOL/L (3.5-5.1) L Chloride Level 104 MMOL/L (98-107) Carbon Dioxide Level 22 MMOL/L (21-32) Anion Gap 12 mmol/L (5-15) Blood Urea Nitrogen 2 mg/dL (7-18) L Creatinine 0.6 MG/DL (0.55-1.30) Estimat Glomerular Filtration Rate > 60 mL/min (>60) Glucose Level 94 MG/DL (74-106) Calcium Level 9.4 MG/DL (8.5-10.1) Phosphorus Level 4.1 MG/DL (2.5-4.9) Magnesium Level 1.7 MG/DL (1.8-2.4) L Total Bilirubin 1.9 MG/DL (0.2-1.0) H Direct Bilirubin 0.6 MG/DL (0.0-0.3) H Aspartate Amino Transf (AST/SGOT) 33 U/L (15-37) Alanine Aminotransferase (ALT/SGPT) 74 U/L (12-78) Alkaline Phosphatase 75 U/L (46-116) Total Protein 6.7 G/DL (6.4-8.2) Albumin 3.3 G/DL (3.4-5.0) L Globulin 3.4 g/dL Albumin/Globulin Ratio 1.0 (1.0-2.7) Lipase 367 U/L (73-393) Height (Feet): 5 Height (Inches): 7.00 Weight (Pounds): 172 General Appearance: WD/WN, no apparent distress, alert Cardiovascular: normal rate Respiratory/Chest: normal breath sounds, no respiratory distress Abdominal Exam: normal bowel sounds, non tender, soft Extremities: normal range of motion, non-tender Kurt Pa NP Dec 29, 2018 10:44
[2018-12-29 12:00] VITALS: BP 106/49
--- NOTE | 2018-12-29 16:15 | Discharge Summary ---
DATE OF ADMISSION: 12/25/2018 DATE OF DISCHARGE: 12/29/2018 HOSPITAL COURSE: This is a 23-year-old female, who came with pyelonephritis, abdominal pain, nausea, and vomiting. The patient still has some nausea and vomiting, but abdominal pain has subsided. The patient received IV antibiotics. ID consult was obtained. The patient is clinically doing better, but is still unable to the eat much, maybe secondary to . She has no abdominal pain. Her cultures are so far negative. The patient is going to be discharged home and follow up with AUTO SALVAGE WORKER. DISCHARGE DIAGNOSES: 1. Acute pyelonephritis. 2. Recurrent nausea and vomiting secondary to probably . DIET: She is on regular diet. ACTIVITY: As tolerated. DISCHARGE MEDICATIONS: The patient was given prescription for Zofran and ID for antibiotics. DISCHARGE INSTRUCTIONS: The patient was recommended to follow up with her PCP in a few days. The patient also has hypokalemia. We will replace the potassium. Also magnesium is slightly low. We will also replace the magnesium. Thnah Temple M.D. DR: LANCE JOB#: [id number] CC:
== END 2018-12-29 13:50 | disposition home or self-care (01) | DRG 566 ==
LOC: EMR 20:25 → 4E 20:41 → EDBEDREQ 20:55
DX: O23.01 Infections of kidney in pregnancy, first trimester (principal); E86.0 Dehydration; E87.6 Hypokalemia; O21.9 Vomiting of pregnancy, unspecified
CPT/HCPCS: 36415; 76801; 76830; 80053; 81003; 81025; 82248; 83690; 83735; 84100; 84702; 85025; 87081; 87086; 96361; 96365; 96375; 96376; 99285; J2405; J2765; J8499